=== PATIENT | male | born 1945 | race Caucasian/White ===

== ENCOUNTER → 2016-02-21 | Outpatient (CLI) | payer MEDICARE ==
[~2016-02-21] MED LIST: ALDACTONE 25MG25 MG NG; AMIODARONE HYD200 MG PO; ASPIR-LOW81 MG PO; ATORVASTATIN CA40 MG PO; ELIQUIS5 MG PO; LISINOPRIL 10MG10 MG PO; LISINOPRIL20 MG PO; LOPRESSOR 25MG.25 MG PO; NAPROXEN SODIU500 MG PO; TART CHERRY E1000 MG PO; [UNRECOGNIZED DRUG - OTHER] PO
[2016-02-21 14:57] LABS: BILIRUBIN, INDIRECT 0.4 mg/dL (0-0.9)
== END ==
LOC: LAB 08:14
PROVIDERS: Internal Medicine
DX: I48.91 Unspecified atrial fibrillation (principal); E78.5 Hyperlipidemia, unspecified